=== PATIENT | male | born 1950 | race Caucasian/White ===

== ENCOUNTER → 2019-09-05 14:00 | Outpatient (BNVA) | payer MEDICARE, OTHER, SELFPAY | PROVIDERS: Referring Provider Pediatrics; Visit Provider Specialist | DX: G60.9 Hereditary and idiopathic neuropathy, unspecified (principal); R42 Dizziness and giddiness | CPT/HCPCS: 99204 ==

== ENCOUNTER 2019-09-05 15:36 | Outpatient (CLI) | payer MEDICARE, OTHER, SELFPAY ==
[2019-09-05 17:03] LABS: Erythrocyte Sedimentation Rate 16 mm/hr (0-10)
[2019-09-05 19:06] LABS: C Reactive Protein 1.6 mg/L (0.0-4.9); Thyroid Stimulating Hormone 4.12 uIU/mL (0.27-4.20); Vitamin B12 651 pg/mL (232-1245)
[2019-09-06 11:01] LABS: PROTEIN, TOTAL 7.2 g/dL (6.1-8.1)
[2019-09-06 14:45] LABS: ALBUMIN 4.1 g/dL (3.8-4.8); ALPHA 1 GLOBULIN 0.3 g/dL (0.2-0.3); ALPHA 2 GLOBULIN 0.7 g/dL (0.5-0.9); BETA 1 GLOBULIN 0.5 g/dL (0.4-0.6); BETA 2 GLOBULIN 0.5 g/dL (0.2-0.5); GAMMA GLOBULIN 1.2 g/dL (0.8-1.7)
[2019-09-09 10:41] LABS: Methylmalonic Acid 172 nmol/L (87-318)
== END 2019-09-05 15:37 | disposition home or self-care (01) ==
LOC: LAB 15:42
PROVIDERS: PCP Pediatrics; Visit Provider Specialist
DX: R20.0 Anesthesia of skin (principal); R20.2 Paresthesia of skin
CPT/HCPCS: 82607; 82746; 83921; 84155; 84165; 84443; 85651; 86140

== ENCOUNTER → 2019-09-12 14:23 | Outpatient (BNVA) | payer MEDICARE, OTHER, SELFPAY | PROVIDERS: PCP Pediatrics; Visit Provider Specialist | DX: G62.9 Polyneuropathy, unspecified (principal); R20.0 Anesthesia of skin; R20.2 Paresthesia of skin; M79.662 Pain in left lower leg; M62.81 Muscle weakness (generalized) | CPT/HCPCS: 95909 ==